=== PATIENT | male | born 1985 | race Caucasian/White ===

== ENCOUNTER 2024-03-01 16:47 | Emergency (ER) | payer MEDICAID ==
[~2024-03-01] VITALS: Ht 182.9 cm; Wt 86.2 kg
[2024-03-01 17:04] VITALS: TEMP 99.3
[2024-03-01] MEDS ORDERED: METF-442 PO (17:44)
[2024-03-01] MEDS ORDERED: CEPH-570 PO (17:44)
[2024-03-01] MEDS ORDERED: SULF1TAB48 PO (17:44)
[2024-03-01] MEDS ORDERED: KETOROLAC TROMETHAMINE 15 MG/ML VIAL IM ONE (18:00)
[2024-03-01] MEDS: IV NS 0.9% 1,000 ML BAG IV ONE (18:00)
[2024-03-01] MEDS ORDERED: METFORMIN 500 MG TABLET ONE (18:06)
[2024-03-01] MEDS ORDERED: CEPHALEXIN MONOHYDRATE 500 MG CAPSULE PO ONE (18:06)
[2024-03-01] MEDS ORDERED: KETOROLAC TROMETHAMINE 15 MG/ML VIAL ONE (18:06)
[2024-03-01] MEDS ORDERED: SULFAMETH/TRIMETH 800/160 MG 1 UDTAB TABLET ONE ×2 (18:07→18:08)
[2024-03-01] MEDS: METFORMIN 500 MG TABLET PO ONE (18:14)
[2024-03-01] MEDS: SULFAMETH/TRIMETH 800/160 MG 1 UDTAB TABLET PO ONE (18:14)
[2024-03-01] MEDS: CEPHALEXIN MONOHYDRATE 500 MG CAPSULE PO ONE (18:14)
[2024-03-01] MEDS: KETOROLAC TROMETHAMINE 15 MG/ML VIAL IV ONE (18:15)
[2024-03-01 18:21] LABS: BASOPHILS % (AUTO) 0.1 % (0.0-2.0); CALCIUM, SERUM 8.8 mg/dL (8.5-10.1); CREATININE 0.8 mg/dL (0.6-1.3); EOSINOPHILS % (AUTO) 0.2 % (0.0-6.0); HEMATOCRIT 40 % (39-51); HEMOGLOBIN 13.6 g/dL (13.5-17.5); LYMPHOCYTES % (AUTO) 6.2 % (20.0-44.0); MEAN CORPUSCULAR HEMOGLOBIN 29 PG (26.0-33.0); MEAN CORPUSCULAR HGB CONC 34 g/dl (31.0-36.0); MEAN CORPUSCULAR VOLUME 85 fL (80-96); MONOCYTES # (AUTO) 1.2 K/uL (0.1-1.30); MONOCYTES % (AUTO) 7.1 % (2.0-12.0); NEUTROPHILS # (AUTO) 14.1 K/uL (1.8-8.9); NEUTROPHILS % (AUTO) 86.4 % (43.0-81.0); PLATELET COUNT (AUTO) 259 K/uL (150-450); POTASSIUM 3.5 mmol/L (3.5-5.1); RED BLOOD CELL COUNT(AUTO) 4.69 MIL/uL (4.5-6.0); WHITE BLOOD COUNT (AUTO) 16.3 K/uL (4.3-11.0)
[2024-03-01 19:46] VITALS: BP 130/79; O2SAT 100
[2024-03-02 01:31] LABS: VBG BASE EXCESS 3.6 mmol/L (-3-3); VBG COHb 0.1 %; VBG MetHb 1.9 %; VBG O2Hb 17.5 %; VBG OXYGEN SATURATION 17.9 %; VBG PCO2 45.9 mmHg (40-52); VBG PH 7.416 (7.31-7.41); VBG PO2 13.2 mmHg (30-50); VBG TOTAL HEMOGLOBIN 13.9 G/dL (13.5-18.0)
== END 2024-03-01 19:47 | disposition home or self-care (01) ==
LOC: ER 16:54
DX: E11.628 Type 2 diabetes mellitus with other skin complications (principal); E11.65 Type 2 diabetes mellitus with hyperglycemia; L03.114 Cellulitis of left upper limb; L03.115 Cellulitis of right lower limb; L73.9 Follicular disorder, unspecified
CPT/HCPCS: 99284; 96374; 96361; 82803 ×2; 85025; 80048; 36415; J7030; J1885

== ENCOUNTER 2024-03-04 15:11 | Emergency (ER) | payer MEDICAID ==
[~2024-03-04 15:11] MED LIST: CEPH-570 PO; METF-442 PO; SULF1TAB48 PO
== END 2024-03-04 15:27 | disposition left against medical advice (07) ==
LOC: ER 15:17
DX: M79.10 Myalgia, unspecified site (principal); Z53.21 Procedure and treatment not carried out due to patient leaving prior to being seen by health care provider

== ENCOUNTER 2024-03-04 15:47 | Emergency (ER) | payer MEDICAID ==
[~2024-03-04] VITALS: Ht 175.3 cm; Wt 86.2 kg
[2024-03-04] MEDS ORDERED: LIDOCAINE 1%-EPI 1:100,000 20 ML VIAL ONE (16:07)
[2024-03-04 17:21] VITALS: BP 140/82; TEMP 99.1; O2SAT 100
== END 2024-03-04 17:21 | disposition home or self-care (01) ==
LOC: ER 15:51
DX: L02.415 Cutaneous abscess of right lower limb (principal); E11.9 Type 2 diabetes mellitus without complications
CPT/HCPCS: 10060; 99282; A6403; A6407; J3490

== ENCOUNTER 2024-10-05 15:41 | Emergency (ER) | payer MEDICAID ==
[~2024-10-05] VITALS: Ht 185.4 cm; Wt 86.2 kg
[2024-10-05 16:28] VITALS: BP 132/88; TEMP 98.2; O2SAT 99
== END 2024-10-05 19:53 | disposition left against medical advice (07) ==
LOC: ER 15:42
DX: S61.411A Laceration without foreign body of right hand, initial encounter (principal); X58.XXXA Exposure to other specified factors, initial encounter; Y93.89 Activity, other specified; Y92.89 Other specified places as the place of occurrence of the external cause; Y99.9 Unspecified external cause status; Z53.21 Procedure and treatment not carried out due to patient leaving prior to being seen by health care provider